=== PATIENT | female | born 1950 | race Caucasian/White ===

== ENCOUNTER 2020-09-21 21:15 | Emergency (ER) | payer OTHER ==
[~2020-09-21] VITALS: Ht 165.1 cm; Wt 56.7 kg
--- NOTE | 2020-09-21 21:17 | NUR ---
PT CRICKET FROM HOME C/O SOB X1 DAY. PER RA, ARRIVED ON SCENE WITH PT'S O2 SAT 70%RA, RECEIVED BREATHING TREATMENT EN ROUTE TO HOSPITAL, ARRIVED TO [facility] ER WITH O2 SAT 96% ON ROOM AIR. PT STATES SHE IS FEELING BETTER NOW. PT AAOX4. RESPIRATIONS EVEN AND UNLABORED. SKIN INTACT. VITAL SIGNS STABLE. PLACED ON MONITOR, WILL CONTINUE TO MONITOR. PENDING MD EVALUATION
--- NOTE | 2020-09-21 21:40 | NUR ---
IV INITIATED LAC 18G. LABS DRAWN FROM SITE. HUMAN CAPITAL MANAGER AT BEDSIDE FOR COLLECTION. IV INTACT AND PATENT, PLACED ON SALINE LOCK
[2020-09-21 21:55] LABS: BASOPHILS % (AUTO) 0.9 % (0.0-2.0); EOSINOPHILS % (AUTO) 3.5 % (0.0-6.0); HEMATOCRIT 33 % (33-45); HEMOGLOBIN 10.4 g/dL (11.5-14.8); LYMPHOCYTES # (AUTO) 1.4 /CMM (0.8-4.8); LYMPHOCYTES % (AUTO) 25.1 % (20.0-44.0); MEAN CORPUSCULAR HGB CONC 31 g/dl (31.0-36.0); MEAN CORPUSCULAR VOLUME 89 fL (82-100); MONOCYTES # (AUTO) 0.3 /CMM (0.1-1.30); MONOCYTES % (AUTO) 5.9 % (2.0-12.0); NEUTROPHILS # (AUTO) 3.5 /CMM (1.8-8.9); NEUTROPHILS % (AUTO) 64.6 % (43.0-81.0); PLATELET COUNT (AUTO) 157 /CMM (150-450); RED BLOOD CELL COUNT(AUTO) 3.74 MIL/uL (4.0-5.2); WHITE BLOOD COUNT (AUTO) 5.5 K/uL (4.3-11.0)
--- NOTE | 2020-09-21 22:03 | NUR ---
RADIOLOGY AT BEDSIDE FOR CXR
[2020-09-21 22:06] LABS: CALCIUM, SERUM 9.1 mg/dL (8.5-10.1); CARBON DIOXIDE 25 mmol/L (21-32); CHLORIDE 103 mmol/L (98-107); CREATININE 1.2 mg/dL (0.6-1.3); GLUCOSE 138 mg/dL (74-106); POTASSIUM 4.7 mmol/L (3.5-5.1); SODIUM SERUM 137 mmol/L (136-145); UREA NITROGEN, BLOOD 30 mg/dL (7-18)
[2020-09-21 22:18] LABS: ALANINE AMINOTRANSFERASE 24 U/L (12-78); ALBUMIN 3.4 g/dL (3.4-5.0); ALKALINE PHOSPHATASE 126 U/L (46-116); ASPARTATE AMINOTRANSFERASE 30 U/L (15-37); B-TYPE NATRIURETIC PEPTIDE 4419 PG/ML (0-125); BILIRUBIN,DIRECT 0.2 mg/dL (0.0-0.2); BILIRUBIN,TOTAL 0.4 mg/dL (0.2-1.0); TOTAL PROTEIN, SERUM 7.6 g/dL (6.4-8.2)
--- NOTE | 2020-09-21 22:20 | NUR ---
COVID SWAB COLLECTED AND SENT TO LAB
--- NOTE | 2020-09-21 22:52 | NUR ---
PT REFUSED INFLUENZA SWAB. AWARE
[2020-09-21] MEDS ORDERED: predniSONE 20 MG TABLET ONE (23:18)
[2020-09-21] MEDS ORDERED: predniSONE 50 MG TABLET PO ONE (23:30)
--- NOTE | 2020-09-21 23:30 | NUR ---
Patient does not wish to proceed with medical care recommended by Dr. Black. Patient given information related to possible complications, up to and including , which could occur as a result of leaving the hospital at this time. Patient verbalizes understanding of risks involved due to leaving against medical advice. Patient has signed AMA form. Pt ambulatory with a steady gait
[2020-09-21 23:40] VITALS: BP 158/79
== END 2020-09-21 23:41 | disposition left against medical advice (07) ==
LOC: ER 21:15
DX: J12.9 Viral pneumonia, unspecified (principal); F17.210 Nicotine dependence, cigarettes, uncomplicated; J44.0 Chronic obstructive pulmonary disease with (acute) lower respiratory infection; J20.9 Acute bronchitis, unspecified; J44.1 Chronic obstructive pulmonary disease with (acute) exacerbation; Z99.81 Dependence on supplemental oxygen; I25.2 Old myocardial infarction; E03.9 Hypothyroidism, unspecified; Z88.6 Allergy status to analgesic agent; Z88.5 Allergy status to narcotic agent; R94.31 Abnormal electrocardiogram [ECG] [EKG]; D64.9 Anemia, unspecified; I11.0 Hypertensive heart disease with heart failure; I50.9 Heart failure, unspecified; Z20.828 Contact with and (suspected) exposure to other viral communicable diseases
CPT/HCPCS: 36415; 71045; 80048; 80076; 83735; 83880; 84484; 85025; 87426; 93005; 99285; 99406; C9803; J7512